=== PATIENT | male | born 1960 | race Caucasian/White ===

== ENCOUNTER 2017-04-08 13:01 | Emergency (ER) | payer OTHER ==
[~2017-04-08] VITALS: Ht 172.7 cm; Wt 99.3 kg
[2017-04-08 13:34] VITALS: Ht 172.7 cm; Wt 99.3 kg
[2017-04-08] MEDS ORDERED: IBUPROFEN 600 MG TAB PO ONE (14:00)
[2017-04-08] MEDS ORDERED: OMEP20CA16 PO (14:02)
[2017-04-08] MEDS ORDERED: NAPR-260 PO (14:02)
--- NOTE | 2017-04-08 14:14 | ERD ---
ER Documentation Chief Complaint Chief Complaint chronic low back pain; needs medication refill HPI 56-year-old male history of low back pain from a fall in 2013 states that he has not been able to see his doctor for Naprosyn and omeprazole. The patient had a fall from work, he was previously taking Naprosyn twice a day with omeprazole. His doctor is unable to see him because he has had an issue with his insurance. He describes low back pain to the left side, it is diffuse and achy, is noted when he is walking or moving and better at rest. He has not had any recent trauma fevers or chills. He denies saddle anesthesia loss of bowel bladder function. Patient denies abdominal pain, nausea, vomiting, diarrhea. Patient denies fevers or chills. ROS All systems reviewed and are negative except as per history of present illness. Medications Home Meds Active Scripts Omeprazole* (Omeprazole*) 20 Mg Capsule.dr, 20 MG PO BID, #60 Prov:BLAYNE ESCOBAR PA-C 04/08/17 Naproxen* (Naprosyn*) 500 Mg Tablet, 500 MG PO BID Y for PAIN AND/OR INFLAMMATION, #30 TAB Prov:BLAYNE ESCOBAR PA-C 04/08/17 Allergies Allergies: Coded Allergies: No Known Allergy (Unverified , 04/08/17) PMhx/Soc Medical and Surgical Hx: pt denies Medical Hx History of Surgery: Yes (SHOULDER 2006) Anesthesia Reaction: No Hx Neurological Disorder: No Hx Respiratory Disorders: No Hx Cardiac Disorders: No Hx Psychiatric Problems: No Hx Miscellaneous Medical Probl: No Hx Alcohol Use: No Hx Substance Use: No Hx Tobacco Use: No Smoking Status: Never smoker Physical Exam Vitals Vital Signs Date Time Temp Pulse Resp B/P Pulse Ox O2 Delivery O2 Flow Rate FiO2 04/08/17 13:34 99.3 89 18 157/96 98 Physical Exam General: Well-developed, well-nourished. The patient appears in no acute distress. HEENT: Head is normocephalic, atraumatic. No scleral icterus. Neck: Supple. Nontender. Lungs: Clear to auscultation. Normal air movement. Heart: Regular rate and rhythm. S1 and S2 are normal. No murmurs, gallops, or rubs. Abdomen: Soft, nontender, nondistended. Bowel sounds are normoactive. Back: No midline pain, left-sided lumbosacral pain. Gait is intact. Extremities: No clubbing or cyanosis. Normal pulses. Moving extremities x 4. No weakness. Neurologic: Alert and oriented 3. No focal deficits. Skin: Normal turgor. No rash or lesions. Results 24 hrs Current Medications Medications (Trade) Dose Ordered Sig/Edi Route PRN Reason Start Time Stop Time Status Last Admin Dose Admin Ibuprofen (Motrin) 600 mg ONCE ONCE PO 04/08/17 14:00 04/08/17 14:01 DC Procedures/MDM 56-year-old male presents with chronic history of low back pain, he had fallen in 2012 and has not been able to use Naprosyn and omeprazole. The patient will be given refills, will be given a list of outpatient clinics to follow-up. No signs of neurovascular injury. Patient's spine symptoms have stabilized while they have been evaluated in the department and are appropriate for outpatient work up. No evidence of cauda equina, cord compression, infiltrative, or infectious etiology. Departure Diagnosis: Primary Impression: Medication refill Additional Impression: Back pain Condition: Good Patient Instructions: Back Pain (Acute Or Chronic) Referrals: [facility] YOU HAVE RECEIVED A MEDICAL SCREENING EXAM AND THE RESULTS INDICATE THAT YOU DO NOT HAVE A CONDITION THAT REQUIRES URGENT TREATMENT IN THE EMERGENCY DEPARTMENT. FURTHER EVALUATION AND TREATMENT OF YOUR CONDITION CAN WAIT UNTIL YOU ARE SEEN IN YOUR DOCTORS OFFICE WITHIN THE NEXT 1-2 DAYS. IT IS YOUR RESPONSIBILITY TO MAKE AN APPOINTMENT FOR FOLOW-UP CARE. IF YOU HAVE A PRIMARY DOCTOR --you should call your primary doctor and schedule an appointment IF YOU DO NOT HAVE A PRIMARY DOCTOR YOU CAN CALL OUR PHYSICIAN REFERRAL HOTLINE AT IF YOU CAN NOT AFFORD TO SEE A PHYSICIAN YOU CAN CHOSE FROM THE FOLLOWING [facility] [address] [facility]. [facility] [address] [facility]. [facility] [address] [facility] [address] [facility]. [facility] [address] [facility]. [facility]. [address] [facility]. [facility] YOU HAVE RECEIVED A MEDICAL SCREENING EXAM AND THE RESULTS INDICATE THAT YOU DO NOT HAVE A CONDITION THAT REQUIRES URGENT TREATMENT IN THE EMERGENCY DEPARTMENT. FURTHER EVALUATION AND TREATMENT OF YOUR CONDITION CAN WAIT UNTIL YOU ARE SEEN IN YOUR DOCTORS OFFICE WITHIN THE NEXT 1-2 DAYS. IT IS YOUR RESPONSIBILITY TO MAKE AN APPOINTMENT FOR FOLOW-UP CARE. IF YOU HAVE A PRIMARY DOCTOR --you should call your primary doctor and schedule and appointment IF YOU DO NOT HAVE A PRIMARY DOCTOR YOU CAN CALL OUR PHYSICIAN REFERRAL HOTLINE AT . IF YOU CAN NOT AFFORD TO SEE A PHYSICIAN YOU CAN CHOSE FROM THE FOLLOWING [facility] INSTIT[facility]IONS: [facility] [address] [place] [address] [facility] [address] [place], [place] [id number] [place] [address] [address] [place] [address] [facility] URGENT C[facility]/SPECIALTIES Additional Instructions: Llame al doctor MAANA y ana lucero ALESSANDRO PARA DENTRO DE 1-2 MCDONALD.Dgale a la secretaria que nosotros le instruimos hacer esta alessandro.Avise o llame si grossman condicin se empeora antes de la alessandro. Regresa aqui si peor o no mejor. BLAYNE ESCOBAR PA-C Apr 08, 2017 14:14
== END 2017-04-08 14:55 | disposition home or self-care (01) ==
LOC: FTE 13:01
DX: M54.5 Low back pain (principal); Z76.0 Encounter for issue of repeat prescription
CPT/HCPCS: Z7502; Z7610; 99281